=== PATIENT | male | born 1950 | race Caucasian/White ===

== ENCOUNTER 2021-09-05 02:54 | Emergency (ER) | payer MEDICARE ==
[~2021-09-05] VITALS: Ht 180.3 cm; Wt 110.0 kg
[~2021-09-05 02:54] MED LIST: [UNRECOGNIZED DRUG - OTHER] IV ONE
[2021-09-05] MEDS ORDERED: normal saline 1000ml 1,000 ML IV ONE (03:05)
[2021-09-05] MEDS ORDERED: atropine 1 MG/1 ML vial IV ONE (03:10)
--- NOTE | 2021-09-05 03:11 | NUR ---
patient is hypotensive and then appears to code. MD at bedside order to immediately begin pacing. capture at 80ppm 60ma. atropine given
[2021-09-05 03:15] VITALS: BP 78/52
[2021-09-05] MEDS ORDERED: ondansetron/PF 4mg/2ml inj IV ONE (03:15)
[2021-09-05] MEDS ORDERED: ketamine 50 mg/ml 10ml vial IV ONE (03:15)
[2021-09-05] MEDS ORDERED: DOPamine 400mg/D5W 250ml 250 ML IV SCH (03:20)
[2021-09-05 03:24] LABS: BASOPHILS % (AUTO) 0.4 % (0-1); EOSINOPHILS # (AUTO) 0.3 X10'3 (0-0.9); EOSINOPHILS % (AUTO) 2.3 % (0-6); HEMATOCRIT 31.2 % (42.0-52.0); HEMOGLOBIN 10.6 g/dl (14.0-17.9); LYMPHOCYTES # (AUTO) 2.4 X10'3 (1.1-4.8); LYMPHOCYTES % (AUTO) 21.2 % (21-51); MEAN CORPUSCULAR HEMOGLOBIN 33.8 PG (27.0-31.0); MEAN CORPUSCULAR HGB CONC 33.8 g/dL (33.0-36.5); MEAN PLATELET VOLUME 8.3 FL (7.4-10.4); MONOCYTES # (AUTO) 0.5 X10'3 (0-0.9); MONOCYTES % (AUTO) 4.6 % (2-12); NEUTROPHILS # (AUTO) 8.2 X10'3 (1.8-7.7); NEUTROPHILS % (AUTO) 71.5 % (42-75); PLATELET COUNT 258 X10'3 (140-440); RED BLOOD COUNT 3.12 X10'6 (4.70-6.10); RED CELL DISTRIBUTION WIDTH 14.9 % (11.5-14.5); WHITE BLOOD COUNT 11.5 X10'3 (4.5-11.0)
[2021-09-05 03:30] LABS: ABG BASE EXCESS -13.5 mmol/L (-2.0-2.0); ABG HCO3 11.3 mmol/L (22.0-26.0); ABG OXYGEN SATURATION 88.9 % (94-97); ABG PCO2 (T) 20.7 mmHg (35.0-48.0); ABG PO2 (T) 52.2 mmHg (75.0-100.0); ALLEN'S TEST POSITIVE; FCOHb 0.3 % (0.0-3.9); FO2Hb 88.6 % (94-97); PATIENT TEMPERATURE 34.2; TOTAL HEMOGLOBIN 10.9 G/dl (14.0-18.0)
[2021-09-05] MEDS ORDERED: heparin 10,000 units/1 ML INJ IV PRN (03:35)
[2021-09-05] MEDS ORDERED: fentaNYL/PF 50MCG/1 ML 2ML syringe IV PRN (03:35)
[2021-09-05] MEDS ORDERED: heparin 10,000 units/1 ML INJ IV ONE ×2 (03:35→03:40)
[2021-09-05] MEDS ORDERED: heparin 25,000 UNIT/250ml bag 250 ML IV SCH (03:35)
[2021-09-05] MEDS ORDERED: midazolam 100mg in NS 100ml 100 ML IV ONE ×2 (03:35→03:39)
[2021-09-05] MEDS ORDERED: DOPamine 400MG/D5W 250ML CRITICAL CARE IV SCH (03:40)
[2021-09-05] MEDS ORDERED: epiNEPHrine 5 MG in NS 250ml IV.SOLN IV SCH (03:45)
[2021-09-05 03:57] LABS: APTT 24 SECONDS (22-32)
[2021-09-05 04:21] LABS: ALANINE AMINOTRANSFERASE 88 U/L (12-78); ALBUMIN 2.9 G/DL (3.4-5.0); ALKALINE PHOSPHATASE 89 IU/L (46-116); ANION GAP 17 (8-16); ASPARTATE AMINO TRANSFERASE 90 U/L (10-37); BLOOD UREA NITROGEN 12 MG/DL (7-18); BUN/CREATININE RATIO 9.3 (5.4-32.0); CALCIUM 7.4 MG/DL (8.5-10.1); CHLORIDE 98 MMOL/L (99-107); CREATININE 1.29 MG/DL (0.60-1.10); GLUCOSE 262 MG/DL (70-104); MAGNESIUM 2.1 MG/DL (1.5-2.4); POTASSIUM 3.3 MMOL/L (3.5-5.1); SODIUM 130 MMOL/L (135-145); TOTAL PROTEIN 5.8 G/DL (6.4-8.2); eGFR 55 ML/MIN
--- NOTE | 2021-09-05 04:22 | NUR ---
SEE CODE FLOW SHEET EXPIRATION MEMORANDUM CPOMPLETED ALTHOUGH COORDINATE MEASURING MACHINE OPERATOR DID NOT ANSWER. FAMILY AT THE BEDSIDE. PERSONAL ITEMS TO FAMILY FAMILY SIGNED RELEASE OF BODY TO [facility] IN [place]. AWAITING COORDINATE MEASURING MACHINE OPERATOR. ORGAN DONOR STATES TISSUE DONATION ELIGIBLE AND WILL CALL BACK ~ [phone]
[2021-09-05 04:23] LABS: TOTAL CARBON DIOXIDE 14.8 MMOL/L (24-32)
[2021-09-05 04:36] LABS: D-DIMER 0.51 MG/L FEU (0-0.50)
[2021-09-05] MEDS ORDERED: etomidate 2mg/ml inj. ONE (07:00)
[2021-09-05] MEDS ORDERED: rocuronium 10mg/ml inj IV ONE (07:00)
[2021-09-05] MEDS ORDERED: sodium bicarbonate (8.4%) 1 mEq/ml syringe ONE (07:00)
[2021-09-05] MEDS ORDERED: epiNEPHrine 0.1mg/ml 10ml syringe ONE (07:00)
[2021-09-05] MEDS ORDERED: atropine 0.1mg/ml 10ml syringe ONE (07:00)
[2021-09-05] MEDS ORDERED: calcium chloride 100 MG/1 ML inj IV ONE (07:00)
== END 2021-09-05 13:27 ==
LOC: ER 02:54
DX: I46.9 Cardiac arrest, cause unspecified (principal); R55 Syncope and collapse; R06.02 Shortness of breath; R00.1 Bradycardia, unspecified; I10 Essential (primary) hypertension
CPT/HCPCS: 31500; 36415; 36600; 80053; 82803; 83735; 83880; 84484; 85018; 85025; 85379; 85610; 85730; 92950; 93005; 96361; 96374; 96375; 99285; J0171; J0461; J2405; J3490; J7030